=== PATIENT | female | born 1950 | race Native Hawaiian/Other Pacific Islander ===

== ENCOUNTER 2016-07-09 06:36 | Day surgery (SDC) | payer MEDICARE, OTHER ==
[2016-07-05 12:46] VITALS: BMI 26.1
[2016-07-09] MEDS ORDERED: Propofol 10 mg/ml Inj (20 ML) ONE (08:13)
[2016-07-09] MEDS ORDERED: Midazolam 2 MG/2 ML VIAL ONE (08:13)
[2016-07-09] MEDS ORDERED: Lactated Ringer's 1,000 ML IV ONE (08:30)
[2016-07-09] MEDS ORDERED: HYDROmorphone 0.5 mg/0.5 ml ISec IVP PRN (09:05)
[2016-07-09 11:20] VITALS: BP 170/59; PULSE 56; RESP 18; TEMP 97.6; O2SAT 100
--- NOTE | 2016-07-09 11:43 | PCM.SURG1 ---
Surgeon's Initial Post Op Note - Surgeon's Notes Surgeon: marlyn Cardenas Educational Administration Teacher: none Type of Anesthesia: General LMA Pre-Operative Diagnosis: endometrial polyp versus fibroid Operative Findings: atrophic endometrium, prominent endometrial polyp 1-2cm, no evidence of perforation Post-Operative Diagnosis: endometrial polyp Operation Performed: hysteroscopy D&C myosure Specimen/Specimens Removed: endometrial polyp and directed curettage Estimated Blood Loss: EBL {In ML}: 10 (NS deficit 192cc) Date of Surgery/Procedure: 07/09/16 Time of Surgery/Procedure: 10:00
--- NOTE | 2016-07-11 07:54 | OP ---
PROCEDURE DATE: 07/09/2016 SURGEON: Katie Cardenas. PRODUCT SAFETY COORDINATOR: None. TYPE OF ANESTHESIA: General LMA. PREOPERATIVE DIAGNOSIS: Endometrial polyp versus fibroid. POSTOPERATIVE DIAGNOSIS: Endometrial polyp. OPERATIVE FINDINGS: Atrophic endometrium except for prominent endometrial polyp about 1-2 cm. No ev idence of perforation at the end of the procedure. OPERATION PERFORMED: Hysteroscopy, D and C, MyoSure, polypectomy with directed curettage. SPECIMEN REMOVED: Endometrial polyp and directed curettage. ESTIMATED BLOOD LOSS: 10 mL. NORMAL SALINE DEFICIT: 129 mL. Note that this is different from the brief op note. OPERATIVE INDICATIONS: The patient is a 65-year-old female with evidence of endometrial polyp found on office ultrasound. She had cervical stenosis and office procedure could not be done. She was con sented for the following procedure. OPERATIVE PROCEDURE: The patient was consented reviewing risks, benefits, and alternatives of the pr ocedure. She was taken to the operating room where she was placed in dorsal lithotomy position. She was prepped and draped in the usual sterile fashion. The cervix was grasped anteriorly with single tooth tenaculum. The cervix posteriorly dilated to allow passage of the operative hysteroscope. Nor mal saline was used as the distention medium. After the cavity was visualized, the MyoSure resectosc ope was used to resect the pathology with the findings above, and a directed curettage was performed with MyoSure device. There was no evidence of perforation at the end of the procedure. All instrume nts were removed from the patient. All surgical counts and lap counts were correct x 2. Katie Cardenas MD cc: [id number] TT: 07/11/2016 02:45:01 tn 07/11/2016 06:45:44
== END 2016-07-09 11:45 | disposition home or self-care (01) ==
LOC: C.SDS 06:36
PROVIDERS: ATTEND Obstetrics & Gynecology
DX: N84.0 Polyp of corpus uteri (principal)
CPT/HCPCS: 58558; 82948; 88305; J2250; J2704; J3010; J7120